=== PATIENT | female | born 1935 | race Caucasian/White ===

== ENCOUNTER 2021-10-18 12:44 | Inpatient (IN) | payer MEDICARE, MEDICAID ==
[~2021-10-18] VITALS: Ht 152.4 cm; Wt 60.3 kg
[~2021-10-18 12:44] MED LIST: ALEN70TA3 PO; AMLO5TAB88 PO; OMEP20CA14 PO
[2021-10-18 13:33] LABS: HEMATOCRIT. 33.3 % (36.0-48.0); HEMOGLOBIN. 11.3 g/dL (12.0-16.0); MEAN CORPUSCULAR HEMOGLOBIN 30.3 pg (28.0-32.0); MEAN CORPUSCULAR VOLUME 89.3 fL (81.0-99.0); MEAN PLATELET VOLUME 7.6 fl (7.4-10.4); PLATELET 552 x1000/uL (130-400); RED BLOOD CELL COUNT 3.73 mill/uL (4.2-5.4); RED CELL DISTRIBUTION WIDTH 15.2 % (11.6-14.6)
[2021-10-18 13:38] LABS: CHLORIDE 106 mEq/L (98-107)
[2021-10-18 13:44] LABS: ETHANOL BLOOD < 10 mg/dL
[2021-10-18 13:55] LABS: PLATELET ESTIMATE INCREASED
[2021-10-18 14:37] LABS: CLARITY URINE CLOUDY (CLEAR); COLOR URINE DARK YELLOW (YELLOW); KETONES URINE TRACE (NEGATIVE); LEUKOCYTE ESTERASE URINE 2+ (NEGATIVE); NITRITE URINE NEGATIVE (NEGATIVE); OCCULT BLOOD URINE 1+ (NEGATIVE); PROTEIN URINE 1+ (NEGATIVE); UROBILINOGEN URINE 0.2 E.U./dL (0.2-1.0)
[2021-10-18] MEDS ORDERED: SODIUM CHLORIDE 0.9% 1000ML BAG (SEPSIS BOLUS) IV NR (14:45)
[2021-10-18] MEDS ORDERED: PIPERACILLIN/TAZ 3.375G PREMIX 50 ML IV NR (14:45)
[2021-10-18 15:04] LABS: *AMPHETAMINES SCREEN URINE NEGATIVE (NEGATIVE); *BARBITURATES SCREEN URINE NEGATIVE (NEGATIVE); *BENZODIAZEPINES SCREEN URINE NEGATIVE (NEGATIVE); *COCAINE SCREEN URINE NEGATIVE (NEGATIVE); METHADONE URINE SCREEN NEGATIVE (NEGATIVE); OPIATES URINE SCREEN NEGATIVE (NEGATIVE)
[2021-10-18 15:05] LABS: CANNABINOID URINE SCREEN NEGATIVE (NEGATIVE); PHENCYCLIDINE URINE SCREEN NEGATIVE (NEGATIVE)
[2021-10-18 15:55] LABS: CHLORIDE 108 mEq/L (98-107)
[2021-10-18] MEDS ORDERED: MAGNESIUM/ALUMINUM HYDROXIDE/SIMETHICONE 30ML UDC PO PRN (19:30)
[2021-10-18] MEDS ORDERED: LORAZEPAM 2MG/ML CPJ IV PRN (19:30)
[2021-10-18] MEDS ORDERED: DOCUSATE SODIUM 100MG CAPSULE PO PRN (19:30)
[2021-10-18] MEDS ORDERED: ACETAMINOPHEN 325MG TABLET PO PRN (19:30)
[2021-10-18] MEDS ORDERED: GUAIFENESIN 200MG/10ML SUGAR FREE UDC PO PRN (19:30)
[2021-10-18] MEDS ORDERED: ENOXAPARIN 40MG/0.4ML SYR SUBCUT SCH (19:30)
[2021-10-18] MEDS ORDERED: IPRATROPIUM/ALBUTEROL 0.5-3(2.5)MG/3ML NEB NEB PRN (19:30)
[2021-10-18] MEDS ORDERED: DIPHENHYDRAMINE 50MG/ML VIAL IV PRN (19:30)
[2021-10-18] MEDS ORDERED: NALOXONE HCL 0.4MG/ML VIAL IV PRN (19:30)
[2021-10-18] MEDS ORDERED: NA PHOS,M-B/NA PHOS,DI-BA ENEMA 118ML PR PRN (19:30)
[2021-10-18] MEDS ORDERED: ONDANSETRON HCL 4MG/2ML INJ IV PRN (19:30)
[2021-10-18] MEDS: ENOXAPARIN 30MG/0.3ML SYR SUBCUT SCH (20:05)
[2021-10-18] MEDS: SODIUM CHLORIDE 0.45% 1,000 ML IV SCH (20:18)
[2021-10-18 21:50] VITALS: BP 150/76
[2021-10-18 22:30] VITALS: BP 150/76
[2021-10-18] MEDS: HYDROCODONE/ACETAMINOPHEN 5/325MG TABLET PO PRN (22:59)
[2021-10-19] VITALS: BP 118/64
[2021-10-19 04:00] VITALS: BP 115/61
[2021-10-19 05:28] LABS: HEMATOCRIT. 29.2 % (36.0-48.0); HEMOGLOBIN. 9.8 g/dL (12.0-16.0); MEAN CORPUSCULAR HEMOGLOBIN 30.2 pg (28.0-32.0); MEAN CORPUSCULAR VOLUME 90.4 fL (81.0-99.0); MEAN PLATELET VOLUME 7.4 fl (7.4-10.4); PLATELET 518 x1000/uL (130-400); RED BLOOD CELL COUNT 3.24 mill/uL (4.2-5.4); RED CELL DISTRIBUTION WIDTH 15.1 % (11.6-14.6)
[2021-10-19 05:45] LABS: LDL CHOLESTEROL 42 mg/dL (5-100)
[2021-10-19 05:47] LABS: HDL CHOLESTEROL 12 mg/dL (40-59)
[2021-10-19 08:00] VITALS: BP 125/76
[2021-10-19] MEDS ORDERED: LEVOFLOXACIN 500MG PREMIX 100 ML IV NR (08:00)
[2021-10-19] MEDS: ASPIRIN 81MG EC TABLET PO SCH (09:40)
[2021-10-19 12:00] VITALS: BP 123/73
[2021-10-19] MEDS: HYDROCODONE/ACETAMINOPHEN 5/325MG TABLET PO PRN (12:14)
[2021-10-19 14:12] LABS: PLATELET ESTIMATE INCREASED
[2021-10-19] MEDS ORDERED: CALCIUM (15:32)
[2021-10-19] MEDS ORDERED: MEMA5TAB42 PO (15:32)
[2021-10-19] MEDS ORDERED: VIT D3 (15:32)
[2021-10-19 16:00] VITALS: BP 143/90
[2021-10-19] MEDS: SODIUM CHLORIDE 0.45% 1,000 ML IV SCH (18:18)
[2021-10-19 20:00] VITALS: BP 153/83
[2021-10-19] MEDS: ENOXAPARIN 30MG/0.3ML SYR SUBCUT SCH (21:01)
[2021-10-20] VITALS: BP 167/94
[2021-10-20] MEDS: CLONIDINE 0.1MG TABLET PO PRN (00:44)
[2021-10-20 04:00] VITALS: BP 128/71
[2021-10-20 08:00] VITALS: BP 145/81
[2021-10-20] MEDS: LEVOFLOXACIN 250MG PREMIX 50 ML IV SCH (10:06)
[2021-10-20] MEDS: SODIUM CHLORIDE 0.45% 1,000 ML IV SCH (10:06)
[2021-10-20] MEDS: ASPIRIN 81MG EC TABLET PO SCH (10:06)
[2021-10-20 12:00] VITALS: BP 136/76
[2021-10-20] MEDS: ACETAMINOPHEN WITH CODEINE 300/30MG TABLET PO PRN ×2 (14:44→23:22)
[2021-10-20 16:00] VITALS: BP 144/70
[2021-10-20] MEDS ORDERED: LOSA1TAB40 MT (16:04)
[2021-10-20 20:00] VITALS: BP 135/86
[2021-10-20] MEDS: ENOXAPARIN 30MG/0.3ML SYR SUBCUT SCH (21:03)
[2021-10-21] VITALS: BP 141/79
[2021-10-21 04:00] VITALS: BP 125/74
[2021-10-21] MEDS: SODIUM CHLORIDE 0.45% 1,000 ML IV SCH (07:07)
[2021-10-21 08:00] VITALS: BP 132/68
[2021-10-21] MEDS: LEVOFLOXACIN 250MG PREMIX 50 ML IV SCH (09:35)
[2021-10-21 09:45] LABS: HEMATOCRIT 31.5 % (36.0-48.0); HEMOGLOBIN 10.6 g/dL (12.0-16.0); MEAN CORPUSCULAR VOLUME 88.8 fL (81.0-99.0); PLATELET 689 x1000/uL (130-400); RED BLOOD CELL COUNT 3.54 mill/uL (4.2-5.4); RED CELL DISTRIBUTION WIDTH 15.3 % (11.6-14.6)
[2021-10-21] MEDS: ASPIRIN 81MG EC TABLET PO SCH (10:20)
[2021-10-21 12:00] VITALS: BP 145/72
[2021-10-21 16:00] VITALS: BP 148/77
[2021-10-21 20:00] VITALS: BP 146/78
[2021-10-21] MEDS: ENOXAPARIN 30MG/0.3ML SYR SUBCUT SCH (20:36)
[2021-10-21] MEDS: ACETAMINOPHEN WITH CODEINE 300/30MG TABLET PO PRN (20:37)
[2021-10-22] VITALS: BP 145/60
[2021-10-22] MEDS: SODIUM CHLORIDE 0.45% 1,000 ML IV SCH (01:57)
[2021-10-22 04:00] VITALS: BP 143/75
[2021-10-22 08:00] VITALS: BP 178/91
[2021-10-22] MEDS: LEVOFLOXACIN 250MG PREMIX 50 ML IV SCH (09:23)
[2021-10-22] MEDS: CLONIDINE 0.1MG TABLET PO PRN (09:24)
[2021-10-22] MEDS: ASPIRIN 81MG EC TABLET PO SCH (09:24)
[2021-10-22] MEDS: HYDROCODONE/ACETAMINOPHEN 5/325MG TABLET PO PRN (09:26)
[2021-10-22 12:00] VITALS: BP 102/60
[2021-10-22 14:23] VITALS: BP 102/60
[2021-10-22 16:00] VITALS: BP 118/61
== END 2021-10-22 16:33 | disposition home health service (06) | DRG 720 ==
LOC: ER 12:44 → 8WST 18:25 → EDBEDREQ 18:41 → EDBEDREQTM 18:41 → ENRESERV 20:00
PROVIDERS: ADMIT Internal Medicine; ATTEND Internal Medicine
DX: A41.9 Sepsis, unspecified organism (principal); G93.41 Metabolic encephalopathy; E46 Unspecified protein-calorie malnutrition; I50.9 Heart failure, unspecified; F03.90 Unspecified dementia, unspecified severity, without behavioral disturbance, psychotic disturbance, mood disturbance, and anxiety; I11.0 Hypertensive heart disease with heart failure; E86.0 Dehydration; D64.9 Anemia, unspecified; K21.9 Gastro-esophageal reflux disease without esophagitis; N39.0 Urinary tract infection, site not specified; J45.909 Unspecified asthma, uncomplicated; M19.90 Unspecified osteoarthritis, unspecified site; Z96.649 Presence of unspecified artificial hip joint; Z91.81 History of falling; Z68.26 Body mass index [BMI] 26.0-26.9, adult; Z88.8 Allergy status to other drugs, medicaments and biological substances; Z79.899 Other long term (current) drug therapy; Z79.83 Long term (current) use of bisphosphonates
CPT/HCPCS: 36415; 71045; 80048; 80053; 80061; 80305; 80307; 80320; 80329; 81003; 82140; 82962; 83605; 83880; 84145; 84484; 85025; 85027; 87077; 87186; 92610; 93005; 97162; 99291; J1650; J1956; J2543; G0480

== ENCOUNTER 2024-08-19 15:39 | Inpatient (IN) | payer MEDICARE, MEDICAID ==
[~2024-08-19] VITALS: Ht 152.4 cm; Wt 59.9 kg
[~2024-08-19 15:39] MED LIST changes: -ALEN70TA3 PO; +ALEN70TA84 PO; +CALCIUM; +LOSA1TAB40 MT; +MEMA5TAB16 PO; +VIT D3
[2024-08-19 17:08] LABS: BASOPHILS % 0.6 % (0.0-2.0); EOSINOPHILS % 3.6 % (0.0-5.0); HEMATOCRIT. 43.4 % (36.0-48.0); HEMOGLOBIN. 14.4 g/dL (12.0-16.0); LYMPHOCYTES % 22.3 % (20.0-50.0); MEAN CORPUSCULAR HEMOGLOBIN 32.5 pg (28.0-32.0); MEAN CORPUSCULAR HGB CONC 33.2 g/dL (31.0-37.0); MEAN CORPUSCULAR VOLUME 97.9 fL (81.0-99.0); MEAN PLATELET VOLUME 9.8 fl (7.4-10.4); MONOCYTES % 7.5 % (2.0-8.0); PLATELET 256 x1000/uL (130-400); RED BLOOD CELL COUNT 4.44 mill/uL (4.2-5.4); RED CELL DISTRIBUTION WIDTH 15.6 % (11.6-14.6); WHITE BLOOD COUNT 7.8 x1000/uL (4.5-11.0)
[2024-08-19 17:17] LABS: CHLORIDE 107 mEq/L (98-107); POTASSIUM 3.5 mEq/L (3.5-5.1); SODIUM 142 mEq/L (136-145)
[2024-08-19 17:18] LABS: CARBON DIOXIDE 27 mEq/L (21-32)
[2024-08-19 17:19] LABS: CALCIUM 9.6 mg/dL (8.7-10.4)
[2024-08-19 17:23] LABS: CREATININE 1.3 mg/dL (0.6-1.0); GLUCOSE 109 mg/dL (70-105); PROTHROMBIN TIME 11.4 sec (9.6-11.0); UREA NITROGEN BLOOD 33 mg/dL (9-23)
[2024-08-19 17:24] LABS: TROPONIN I HIGH SENSITIVITY 5 ng/L (3.0-34)
[2024-08-19 18:55] LABS: CLARITY URINE TURBID (CLEAR); COLOR URINE YELLOW (YELLOW); GLUCOSE URINE NEGATIVE (NEGATIVE); KETONES URINE TRACE (NEGATIVE); LEUKOCYTE ESTERASE URINE TRACE (NEGATIVE); NITRITE URINE NEGATIVE (NEGATIVE); OCCULT BLOOD URINE NEGATIVE (NEGATIVE); PROTEIN URINE TRACE (NEGATIVE); SPECIFIC GRAVITY URINE 1.018 (1.005-1.030); UROBILINOGEN URINE 0.2 E.U./dL (0.2-1.0)
[2024-08-19 20:12] LABS: AMORPHOUS SEDIMENT URINE 2+ /lpf; BACTERIA URINE 3+; RBC URINE 0-2 /hpf (0-2); SQUAMOUS EPITHELIAL CELL URINE 1+ /lpf (RARE/1+); YEAST URINE NONE SEEN
[2024-08-19] MEDS ORDERED: DOCUSATE SODIUM 100MG CAPSULE PO PRN (21:45)
[2024-08-19] MEDS ORDERED: ACETAMINOPHEN 325MG TABLET PO PRN (21:45)
[2024-08-19] MEDS ORDERED: GUAIFENESIN 200MG/10ML SUGAR FREE UDC PO PRN (21:45)
[2024-08-19] MEDS: DEXT 5%/0.9% NACL 1,000 ML IV SCH (22:25)
[2024-08-20] MEDS: CEFTRIAXONE 1GM/50ML 50 ML IV SCH (00:43)
[2024-08-20] MEDS: PANTOPRAZOLE SODIUM 40 MG/VIAL IV SCH (00:43)
[2024-08-20] MEDS: ACETAMINOPHEN 1000MG/100ML 100 ML IV NR (02:14)
[2024-08-20] MEDS: CLONIDINE 0.1MG TABLET PO SCH (08:11)
[2024-08-20] MEDS: LOSARTAN 50 MG TABLET PO SCH (08:11)
[2024-08-20] MEDS: QUETIAPINE FUMARATE 25MG TABLET PO SCH (08:58)
[2024-08-20] MEDS: ACETAMINOPHEN 325MG TABLET PO PRN (08:58)
[2024-08-20] MEDS: MEMANTINE HCL 5MG TABLET PO SCH (08:58)
[2024-08-20 09:24] LABS: BASOPHILS % 0.6 % (0.0-2.0); EOSINOPHILS % 2.8 % (0.0-5.0); HEMATOCRIT. 40.1 % (36.0-48.0); HEMOGLOBIN. 13.3 g/dL (12.0-16.0); LYMPHOCYTES % 18.7 % (20.0-50.0); MEAN CORPUSCULAR HEMOGLOBIN 31.7 pg (28.0-32.0); MEAN CORPUSCULAR HGB CONC 33.2 g/dL (31.0-37.0); MEAN CORPUSCULAR VOLUME 95.6 fL (81.0-99.0); MONOCYTES % 8.2 % (2.0-8.0); NEUTROPHILS % 69.7 % (40.0-76.0); PLATELET 250 x1000/uL (130-400); RED CELL DISTRIBUTION WIDTH 14.8 % (11.6-14.6); WHITE BLOOD COUNT 8.3 x1000/uL (4.5-11.0)
[2024-08-20 09:30] LABS: POTASSIUM 3.4 mEq/L (3.5-5.1)
[2024-08-20 09:32] LABS: CALCIUM 9.7 mg/dL (8.7-10.4)
[2024-08-20 09:35] LABS: CREATINE KINASE MB FRACTION < 0.5 ng/mL (0.5-3.6); TROPONIN I HIGH SENSITIVITY 7 ng/L (3.0-34)
[2024-08-20 09:36] LABS: CREATININE 1.1 mg/dL (0.6-1.0)
[2024-08-20 09:37] LABS: CREATINE KINASE 23 IU/L (34-145)
[2024-08-20 09:40] LABS: T4 FREE 1.42 ng/dL (0.89-1.76); THYROID STIMULATING HORMONE 1.55 uIU/mL (0.55-4.78)
[2024-08-20] MEDS ORDERED: GABA-532 PO (09:50)
[2024-08-20 09:51] VITALS: BP 161/88; PULSE 86; RESP 18; TEMP 36.1956
[2024-08-20 10:11] LABS: *AMPHETAMINES SCREEN URINE NEGATIVE (NEGATIVE)
[2024-08-20 10:12] LABS: *BENZODIAZEPINES SCREEN URINE NEGATIVE (NEGATIVE)
[2024-08-20 10:13] LABS: *BARBITURATES SCREEN URINE NEGATIVE (NEGATIVE); *COCAINE SCREEN URINE NEGATIVE (NEGATIVE); METHADONE URINE SCREEN NEGATIVE (NEGATIVE)
[2024-08-20 10:14] LABS: CANNABINOID URINE SCREEN NEGATIVE (NEGATIVE); ECSTASY MDMA SCREEN URINE NEGATIVE (NEGATIVE); OPIATES URINE SCREEN NEGATIVE (NEGATIVE); PHENCYCLIDINE URINE SCREEN NEGATIVE (NEGATIVE)
[2024-08-20 12:00] VITALS: BP 88/50; PULSE 68; RESP 18; TEMP 36.6696; O2SAT 95
[2024-08-20] MEDS: DEXT 5%/0.45% NACL 1000ML 1,000 ML IV SCH (12:10)
[2024-08-20] MEDS: SODIUM CHLORIDE 0.45% 500 ML IV ONE (12:21)
[2024-08-20 12:47] LABS: PHOSPHORUS 3.5 mg/dL (2.5-4.9)
[2024-08-20] MEDS ORDERED: INFLUENZA VACCINE 05/PF 0.5 ML SYRINGE IM ONE (13:00)
[2024-08-20] MEDS ORDERED: PNEUMOCOCCAL 20-VAL CONJ-DIP CRM 0.5ML IM ONE (13:00)
[2024-08-20] MEDS: POTASSIUM CHLORIDE 20MEQ TABLET SR PO SCH (13:00)
[2024-08-20] MEDS ORDERED: MAGNESIUM 2 G PREMIX 50 ML IV SCH (13:00)
[2024-08-20 15:22] VITALS: BP 132/84
[2024-08-20] MEDS: MAGNESIUM 2 G PREMIX 50 ML IV SCH (17:07)
[2024-08-20] MEDS: ENOXAPARIN 30MG/0.3ML SYR SUBCUT SCH (17:10)
[2024-08-20] MEDS: KCL 20MEQ/100ML PREMIX 100 ML IV NR (18:09)
[2024-08-20 20:00] VITALS: BP 162/87; PULSE 88; RESP 18; TEMP 36.22512; O2SAT 98
[2024-08-21] VITALS: BP 149/84; PULSE 82; RESP 19; TEMP 36.22512; O2SAT 98
[2024-08-21 04:00] VITALS: BP 152/86; PULSE 82; RESP 17; TEMP 36.55848; O2SAT 97
[2024-08-21 07:25] LABS: CALCIUM 8.8 mg/dL (8.7-10.4); CARBON DIOXIDE 27 mEq/L (21-32); CHLORIDE 105 mEq/L (98-107); POTASSIUM 3.1 mEq/L (3.5-5.1); SODIUM 140 mEq/L (136-145)
[2024-08-21 07:30] LABS: CREATININE 0.8 mg/dL (0.6-1.0)
[2024-08-21 07:31] LABS: GLUCOSE 105 mg/dL (70-105); UREA NITROGEN BLOOD 15 mg/dL (9-23)
[2024-08-21 07:33] LABS: BASOPHILS % 0.6 % (0.0-2.0); HEMATOCRIT. 38.6 % (36.0-48.0); HEMOGLOBIN. 12.9 g/dL (12.0-16.0); LYMPHOCYTES % 25.9 % (20.0-50.0); MEAN CORPUSCULAR HGB CONC 33.4 g/dL (31.0-37.0); MEAN CORPUSCULAR VOLUME 95.9 fL (81.0-99.0); MEAN PLATELET VOLUME 9.9 fl (7.4-10.4); MONOCYTES % 7.4 % (2.0-8.0); NEUTROPHILS % 62.1 % (40.0-76.0); PHOSPHORUS 2.9 mg/dL (2.5-4.9); PLATELET 216 x1000/uL (130-400); RED BLOOD CELL COUNT 4.03 mill/uL (4.2-5.4); RED CELL DISTRIBUTION WIDTH 15.3 % (11.6-14.6); WHITE BLOOD COUNT 6.2 x1000/uL (4.5-11.0)
[2024-08-21 08:15] VITALS: BP 175/97; PULSE 86; RESP 19; TEMP 36.61404; O2SAT 94
[2024-08-21] MEDS: CLONIDINE 0.1MG TABLET PO PRN (08:48)
[2024-08-21] MEDS: HYDRALAZINE 20MG/ML VIAL IV PRN (09:15)
[2024-08-21] MEDS: KCL 20MEQ/100ML PREMIX 100 ML IV SCH (11:06)
[2024-08-21] MEDS ORDERED: CEFTRIAXONE 1GM/50ML 50 ML IV SCH (11:30)
[2024-08-21 11:47] VITALS: BP 104/55; PULSE 95; RESP 18; TEMP 36.6696; O2SAT 97
[2024-08-21 16:02] VITALS: BP 140/68; PULSE 108; RESP 19; TEMP 36.6696; O2SAT 98
[2024-08-21 20:00] VITALS: BP 138/84; PULSE 111; RESP 20; TEMP 36.6696; O2SAT 100
[2024-08-21] MEDS: MIRTAZAPINE 15MG TABLET PO SCH (21:14)
[2024-08-21] MEDS: INSULIN GLARGINE 100 UNITS/ML SUBCUT SCH (21:16)
[2024-08-22] VITALS: BP 173/103; PULSE 112; RESP 20; TEMP 36.83628; O2SAT 100
[2024-08-22 04:00] VITALS: BP 126/69; PULSE 117; RESP 18; TEMP 36.44736; O2SAT 98
[2024-08-22 06:42] LABS: BASOPHILS % 0.6 % (0.0-2.0); EOSINOPHILS % 2.1 % (0.0-5.0); HEMATOCRIT. 40.9 % (36.0-48.0); HEMOGLOBIN. 13.6 g/dL (12.0-16.0); LYMPHOCYTES % 24.3 % (20.0-50.0); MEAN CORPUSCULAR HEMOGLOBIN 31.4 pg (28.0-32.0); MEAN CORPUSCULAR HGB CONC 33.2 g/dL (31.0-37.0); MEAN CORPUSCULAR VOLUME 94.5 fL (81.0-99.0); MEAN PLATELET VOLUME 10.2 fl (7.4-10.4); MONOCYTES % 8.8 % (2.0-8.0); NEUTROPHILS % 64.2 % (40.0-76.0); PLATELET 273 x1000/uL (130-400); RED BLOOD CELL COUNT 4.33 mill/uL (4.2-5.4); RED CELL DISTRIBUTION WIDTH 14.8 % (11.6-14.6); WHITE BLOOD COUNT 9.2 x1000/uL (4.5-11.0)
[2024-08-22 06:46] LABS: CALCIUM 8.7 mg/dL (8.7-10.4)
[2024-08-22 06:52] LABS: CREATININE 0.9 mg/dL (0.6-1.0)
[2024-08-22 08:00] VITALS: BP 134/77; PULSE 106; RESP 18; TEMP 36.16956; O2SAT 100
[2024-08-22] MEDS ORDERED: POTASSIUM CHLORIDE 20MEQ TABLET SR PO ONE (11:00)
[2024-08-22] MEDS ORDERED: KCL 20MEQ/100ML PREMIX 100 ML IV SCH (11:00)
[2024-08-22] MEDS: KCL 20MEQ/100ML PREMIX 100 ML IV SCH (15:36)
[2024-08-22 16:00] VITALS: BP 180/97; PULSE 102; RESP 18; TEMP 37.05852; O2SAT 98
[2024-08-22] MEDS ORDERED: DEXTROSE 50% WATER 50ML SYRINGE IV PRN (19:45)
[2024-08-22 20:00] VITALS: BP 103/63; PULSE 121; RESP 20; TEMP 36.3918; O2SAT 97
[2024-08-22] MEDS: BLOOD SUGAR DIAGNOSTIC STRIP TEST SCH (21:00)
[2024-08-22] MEDS: QUETIAPINE FUMARATE 25MG TABLET PO SCH (21:08)
[2024-08-23] VITALS: BP 142/72; PULSE 110; RESP 20; TEMP 36.55848; O2SAT 99
[2024-08-23 04:00] VITALS: BP 138/86; PULSE 70; RESP 20; TEMP 37.72524; O2SAT 96
[2024-08-23 07:09] LABS: POTASSIUM 3.5 mEq/L (3.5-5.1)
[2024-08-23 08:00] VITALS: BP 153/103; PULSE 106; RESP 18; TEMP 36.89184; O2SAT 99
[2024-08-23 12:00] VITALS: BP 149/88; PULSE 97; RESP 18; TEMP 37.05852; O2SAT 98
[2024-08-23 15:38] VITALS: BP 153/103; PULSE 100; TEMP 98.4; O2SAT 99
[2024-08-23 16:00] VITALS: BP 143/72; PULSE 103; RESP 22; TEMP 36.6696; TEMP 36.66960; O2SAT 97
== END 2024-08-23 19:02 | disposition home health service (06) | DRG 421 ==
LOC: ER 15:39 → EDBEDREQ 17:55 → EDBEDREQTM 17:55 → 5WST 19:47 → 7WST 08-20 08:22
PROVIDERS: ADMIT Internal Medicine; ATTEND Internal Medicine
DX: R62.7 Adult failure to thrive (principal); N17.0 Acute kidney failure with tubular necrosis; G93.41 Metabolic encephalopathy; L89.159 Pressure ulcer of sacral region, unspecified stage; G30.9 Alzheimer's disease, unspecified; R54 Age-related physical debility; E86.0 Dehydration; Z66 Do not resuscitate; N39.0 Urinary tract infection, site not specified; F20.9 Schizophrenia, unspecified; K21.9 Gastro-esophageal reflux disease without esophagitis; M81.0 Age-related osteoporosis without current pathological fracture; I10 Essential (primary) hypertension; Z68.25 Body mass index [BMI] 25.0-25.9, adult; Z96.642 Presence of left artificial hip joint; Z91.81 History of falling; Z74.01 Bed confinement status; Z79.83 Long term (current) use of bisphosphonates; Z79.899 Other long term (current) drug therapy; Z90.49 Acquired absence of other specified parts of digestive tract
CPT/HCPCS: 36415; 71045; 76881; 80048; 80305; 81003; 82550; 82553; 82962; 83036; 83605; 83735; 83880; 84100; 84132; 84145; 84439; 84443; 84484; 85025; 86850; 86900; 90732; 92610; 93005; 93306; 93970; 99285; J0360; J0696; J1650; J1815; J2470; J3475; J3480; J0131